=== PATIENT | female | born 1990 | race Caucasian/White ===

== ENCOUNTER → 2025-01-13 | Outpatient (REF) | payer OTHER | LOC: M LAB REF 17:42 | PROVIDERS: ATTEND Otolaryngology | DX: K11.20 Sialoadenitis, unspecified (principal) ==

== ENCOUNTER → 2025-03-30 | Outpatient (CLI) | payer OTHER ==
[2025-03-30 13:47] LABS: PLATELET COUNT, AUTOMATED 330 10^3/uL (150-450)
[2025-03-30 14:12] LABS: HIV 1&2 SCREEN NEGATIVE (NEGATIVE)
[2025-03-30 14:20] LABS: HEPATITIS C VIRUS ABY INDEX < 0.02 INDEX (<0.8)
[2025-03-30 14:48] LABS: Trichomonas vaginalis (AMP) NOT DETECTED (NEGATIVE)
[2025-03-30 15:11] LABS: GC DNA AMPLIFICATION NEGATIVE (NEGATIVE)
== END ==
LOC: M PLALAB 09:44
PROVIDERS: ATTEND Obstetrics & Gynecology
DX: Z34.81 Encounter for supervision of other normal pregnancy, first trimester (principal)

== ENCOUNTER → 2025-03-30 | Outpatient (REF) | payer OTHER | LOC: M PLALAB 09:29 | PROVIDERS: ATTEND Obstetrics & Gynecology | DX: Z34.81 Encounter for supervision of other normal pregnancy, first trimester (principal); Z53.9 Procedure and treatment not carried out, unspecified reason ==

== ENCOUNTER → 2025-04-30 | Outpatient (REF) | payer OTHER ==
[2025-04-30 14:12] LABS: IRON (FE) 106.0 UG/DL (50-170); PERCENT SATURATION 30.4 % (13.2-45.0)
[2025-04-30 14:15] LABS: FREE T4 1.11 NG/DL (0.89-1.76)
== END ==
LOC: M SFHCWAGY 12:59
PROVIDERS: ATTEND Advanced Practice Midwife
DX: O26.812 Pregnancy related exhaustion and fatigue, second trimester (principal)